=== PATIENT | female | born 2005 | race Two or more races ===

== ENCOUNTER 2025-02-11 04:40 | Emergency (ER) | payer OTHER ==
[~2025-02-11] VITALS: Ht 157.5 cm; Wt 65.8 kg
[2025-02-11] MEDS: TDAP [DIPH/PERTUSSIS/TET] 0.5 ML VIAL IM ONE (05:00)
[2025-02-11] MEDS ORDERED: HYDROCODONE/APAP 5/325MG TABLET ONE (05:09)
[2025-02-11] MEDS: HYDROCODONE/APAP 5/325MG TABLET PO ONE (05:13)
[2025-02-11] MEDS ORDERED: IBUP-1955 PO (07:22)
[2025-02-11 08:01] VITALS: BP 16/70; TEMP 98.6; O2SAT 99
== END 2025-02-11 08:03 | disposition home or self-care (01) ==
LOC: ER 04:43
DX: S02.2XXA Fracture of nasal bones, initial encounter for closed fracture (principal); S00.83XA Contusion of other part of head, initial encounter; S46.912A Strain of unspecified muscle, fascia and tendon at shoulder and upper arm level, left arm, initial encounter; H11.33 Conjunctival hemorrhage, bilateral; Y04.0XXA Assault by unarmed brawl or fight, initial encounter; Y93.89 Activity, other specified; Y92.89 Other specified places as the place of occurrence of the external cause; Y99.8 Other external cause status
CPT/HCPCS: 70450-TC; 70486-TC; 71111-TC; 72125-TC; 73030-TC; 90715